=== PATIENT | female | born 1995 | race Caucasian/White ===

== ENCOUNTER 2023-03-17 11:58 | Outpatient (CLI) | payer BC, SELFPAY ==
--- NOTE | 2023-03-17 12:15 | CRLHL7_ITS ---
For Patients: As a result of the Cures Act, medical imaging exams and procedure reports are released immediately into your electronic medical record. You may view this report before your referring provider. If you have questions, please contact your health care provider. INDICATION: First trimester dating. TECHNIQUE: Ultrasound OB pelvis transabdominal and transvaginal. Real-time haro-scale imaging of the pelvis was performed. COMPARISON: None. FINDINGS: Intrauterine gestational sac: Present with mean sac diameter of 1.4 centimeters. Embryo present: No. Embryo cardiac activity: NA. [place] rump Length: NA. Sonographic gestational age: 6 weeks and 2 days. Yolk sac: Present. Perigestational hemorrhage: None. Ovaries and adnexae: The right over measures 3.6 x 2.1 x 2.7 centimeters and the left ovary measures 3.5 x 1.4 x 2.4 centimeters. There is a suspected corpus luteal cyst in the right ovary that measures 2.2 centimeters. IMPRESSION: Intrauterine gestational sac and yolk sac are visualized with mean sac diameter of 1.4 centimeters consistent with 6 weeks and 2 days. There is no visualized embryo or heart rate, which may be secondary to early gestational age. Recommend repeat examination in approximately 2 weeks. Dictated by Yaakov Murillo MD @ 03/17/2023 1:04:00 PM (Electronically Signed)
== END 2023-03-17 11:59 | disposition home or self-care (01) ==
LOC: US 12:02
PROVIDERS: Visit Provider Advanced Practice Midwife
DX: Z34.91 Encounter for supervision of normal pregnancy, unspecified, first trimester (principal); Z3A.01 Less than 8 weeks gestation of pregnancy
CPT/HCPCS: 76817

== ENCOUNTER 2023-03-31 09:27 | Outpatient (CLI) | payer BC, SELFPAY ==
--- NOTE | 2023-03-31 09:45 | CRLHL7_ITS ---
For Patients: As a result of the Century Cures Act, medical imaging exams and procedure reports are released immediately into your electronic medical record. You may view this report before your referring provider. If you have questions, please contact your health care provider. INDICATION: Follow-up viability COMPARISON: 03/17/2023 TECHNIQUE: Real-time haro-scale imaging of the pelvis was performed. FINDINGS: Sonographic imaging demonstrates a single living intrauterine gestation. The embryo demonstrates a regular cardiac rate measuring 142 beats per minute. The embryo`s crown-rump length measurement of 1.3 cm corresponds to a gestational age of 7 weeks 3 days with a sonographic due date of 11/14/2023. There is a normal-appearing yolk sac. There are no gross abnormalities noted within the embryo at this early state of development. The gestational sac has a normal appearance. There is no evidence of a perigestational hemorrhage. The amount of fluid within the sac appears appropriate for gestational age. The cervix is closed. The myometrium appears normal. The ovaries are of normal size. Corpus luteal cyst right ovary. There are no suspicious fluid collections noted in the cul-de-sac. IMPRESSION: Normal first trimester OB ultrasound exam. Gestational age calculated at 7 weeks 3 days with a sonographic due date of 11/14/2023. Dictated by Rainer Cheema MD @ 03/31/2023 10:34:43 AM (Electronically Signed)
== END 2023-03-31 09:28 | disposition home or self-care (01) ==
LOC: US 09:28
PROVIDERS: Visit Provider Advanced Practice Midwife
DX: Z34.91 Encounter for supervision of normal pregnancy, unspecified, first trimester (principal); Z3A.01 Less than 8 weeks gestation of pregnancy
CPT/HCPCS: 76817; 86592; 86703; 86704; 86706; 86762; 86787; 86803; 86850; 86900; 86901; 87086; 87340

== ENCOUNTER 2023-06-25 09:16 | Outpatient (CLI) | payer BC, SELFPAY ==
--- NOTE | 2023-06-25 09:15 | US_ITS ---
Patient: ISABEL COLLINS Facility:?[facility] Patient ID:?[id number] Site Patient ID:?[id number]. Site :?1995 Study:?US-OB Pelvis OB > 14wks-06/25/2023 11:19:47 AM Ordering Physician:?Shantell Jaramillo Final Report: INDICATION: Evaluate anatomy. COMPARISON: 03/31/2023 TECHNIQUE: Real time haro scale imaging of the fetus was performed as well as color Doppler analysis of the umbilical vessels. FINDINGS: Sonographic imaging demonstrates a single living intrauterine gestation. Fetus demonstrates a regular cardiac rate of 144 beats per minute. Fetus has a vertex position. The placenta lies anteriorly without evidence of placenta previa. Placental edge 8.9 cm from the internal cervical os. Amniotic fluid volume appears normal. Single deepest vertical pocket: 4.1 cm. The cervix is closed and measures 4.3 cm in length. The composite ultrasound gestational age is calculated at 20 weeks 1 day with an estimated sonographic due date of 11/11/2023. The estimated weight is 317 grams which lies at the 54th %. The following biometric measurements were obtained: Biparietal diameter: 4.7 cm/20 weeks 2 days 74th% Head circumference: 17.6 cm/20 weeks 0 days 59th% Abdominal circumference: 14.5 cm/19 weeks 6 day 49th% Femur length: 3.2 cm/19 weeks 6 days 45th% The HC/AC ratio measures: 1.21 range (1.07-1.25) On anatomic survey, there is a normal appearance of the cerebral ventricles, cavum septi pellucidi, cisterna magna and cerebellum. The nose, lips, and facial profile appear normal. The cervical, thoracic and lumbar spine are well visualized and appear normal. There is a normal four-chamber heart view and the left and right ventricular outflow tracts appear normal. Incomplete visualization of the 3VTV view. The diaphragm and stomach appear normal. The kidneys and bladder also appear normal. There is a normal three-vessel cord and slightly eccentric cord insertion site. The four extremities appear normal. IMPRESSION: Concordance of clinical and sonographic dating. Incomplete visualization of the 3VTV view. Remainder of the anatomic survey normal. Short-term follow-up recommended. Dictated by Rainer Cheema MD @ 06/25/2023 11:54:00 AM Signed by:?Rainer Cheema MD @06/25/2023 11:54:00 AM (Electronic Signature)
== END 2023-06-25 09:17 | disposition home or self-care (01) ==
LOC: US 09:17
PROVIDERS: Visit Provider Obstetrics & Gynecology
DX: Z34.92 Encounter for supervision of normal pregnancy, unspecified, second trimester (principal); Z3A.20 20 weeks gestation of pregnancy
CPT/HCPCS: 76805

== ENCOUNTER 2023-07-09 12:55 | Outpatient (CLI) | payer BC, SELFPAY ==
--- NOTE | 2023-07-09 13:00 | US_ITS ---
Patient: ISABEL COLLINS Facility:?[facility] [place] Patient ID:?[id number] Site Patient ID:?[id number] Site :?1995 Study:?US-OB Pelvis OB F/U-07/09/2023 2:07:42 PM Ordering Physician:Ana Santana Final Report: INDICATION: Follow-up 3VTV, incompletely imaged on the anatomic survey COMPARISON: 07/09/2023 TECHNIQUE: Real time haro scale imaging of the fetus was performed. FINDINGS: Sonographic imaging demonstrates a single living intrauterine gestation. Fetus demonstrates a regular cardiac rate of 155 beats per minute. Fetus has a vertex position. The placenta lies anterior. Amniotic fluid volume appears normal. Single deepest vertical pocket: 5.6 cm. The cervix is closed and measures 3.7 cm in length. There is a normal four-chamber heart view and the left and right ventricular outflow tracts appear normal. Normal 3VTV. IMPRESSION: Normal cardiac views. Dictated by Rainer Cheema MD @ 07/09/2023 3:00:13 PM Signed by:?Rainer Cheema MD @07/09/2023 3:00:13 PM (Electronic Signature)
== END 2023-07-09 12:56 | disposition home or self-care (01) ==
LOC: US 12:56
PROVIDERS: Visit Provider Obstetrics & Gynecology
DX: O36.8390 Maternal care for abnormalities of the fetal heart rate or rhythm, unspecified trimester, not applicable or unspecified (principal)
CPT/HCPCS: 76816

== ENCOUNTER 2023-08-20 08:30 | Outpatient (CLI) | payer BC, SELFPAY | END 2023-08-20 08:31 | disposition home or self-care (01) | LOC: NFLDREF 08-24 13:24 | PROVIDERS: Visit Provider Obstetrics & Gynecology | DX: Z34.92 Encounter for supervision of normal pregnancy, unspecified, second trimester (principal); Z3A.27 27 weeks gestation of pregnancy | CPT/HCPCS: 86592 ==

== ENCOUNTER 2023-09-06 07:14 | Outpatient (CLI) | payer BC, SELFPAY ==
--- NOTE | 2023-09-06 07:15 | CRLHL7_ITS ---
For Patients: As a result of the Century Cures Act, medical imaging exams and procedure reports are released immediately into your electronic medical record. You may view this report before your referring provider. If you have questions, please contact your health care provider. INDICATION: Excessive growth. TECHNIQUE: Ultrasound OB pelvis transabdominal. Real-time haro-scale imaging of the fetus was performed as well as color Doppler and spectral Doppler analysis of the umbilical artery. COMPARISON: July 09, 2023. FINDINGS: Single living intrauterine gestation. heart rate: 142 beats per minute. Presentation: Breech. Placenta: Anterior without previa. Amniotic fluid deepest pocket: 5.8 cm. The following biometric measurements were obtained: Biparietal diameter: 80th percentile. Head circumference: 63rd percentile. Abdominal circumference: 44th percentile. Femur length: 20th percentile. Ultrasound age: 30 weeks 5 days. YUNG by US: November 10, 2023. EFW: 1530 Grams, 39th %. IMPRESSION.: Viable intrauterine . No abnormalities seen. Fetus is measuring at the 39th percentile by estimated age. Dictated by Dru Valencia MD @ 09/06/2023 8:26:02 AM (Electronically Signed)
== END 2023-09-06 07:15 | disposition home or self-care (01) ==
LOC: US 07:15
PROVIDERS: Visit Provider Obstetrics & Gynecology
DX: O36.63X0 Maternal care for excessive fetal growth, third trimester, not applicable or unspecified (principal); Z3A.30 30 weeks gestation of pregnancy
CPT/HCPCS: 76816

== ENCOUNTER 2023-10-01 15:13 | Outpatient (CLI) | payer BC, SELFPAY | END 2023-10-01 15:14 | disposition home or self-care (01) | LOC: NFLDREF 10-04 11:30 | PROVIDERS: Visit Provider Obstetrics & Gynecology | DX: Z34.93 Encounter for supervision of normal pregnancy, unspecified, third trimester (principal) | CPT/HCPCS: 82728 ==

== ENCOUNTER 2023-10-14 18:26 | Inpatient (IN) | payer BC, SELFPAY ==
[2023-10-14] VITALS (8 sets, daily range): BP systolic 116–117; BP diastolic 50–72; PULSE 61–76; TEMP 36.3–37; BMI 30.7
[2023-10-14 18:02] LABS: Amnisure Rom* POSITIVE
--- NOTE | 2023-10-14 19:21 | P.OBHP_ITS ---
OB - H&P: HPI Labor/Induction History of Present Illness Time Seen by Provider: 19:21 Date Seen: 10/14/23 Chief Complaint: Chelsea is a 28 year old 1 para 0 at 35 4/7 weeks gestation by LMP, who presents with pre term premature rupture of membranes. Rupture membranes occurred at 4:20 p.m. copious amount of clear fluid. AmniSure was positive consistent with Pprom. She has been feeling some cramping since her water broke. Group B strep test was collected in triage. Group B strep status is unknown so will start Ancef for GBS prophylaxis as she is allergic to penicillin. Planning on starting Pitocin at 10:00 p.m. if she does not progress into labor spontaneously. All of her questions were answered. Chief complaint: maternity : 1 Para: 0 Narrative: Chelsea Hammond is a 28 year old female Specific Issues/Plans Fiance: Cassius Baby: Boy Merrick #Mild thrombocytopenia at 28 weeks: 133K. Recheck at 34 weeks 10/01/2023: 144K = normal. Check CBC on admission to the Center. #Asthma w/ recent inhaler use. #Rubella non-immune. Need vaccine PP. # Non-immune to hepatitis B. Works in a [employer]. Given info on hep B vaccine 04/30. # Nipple pain and blanching, suspect Raynaud's nipples * Patient removed piercings, and that has helped * May need to consider nifedipine Needs PP pap Covid: declines Flu: declines Tdap: 09/06/23 Ultrasounds: - FAS with repeat to complete cardiac views: normal, EFW - Growth @ 30wks - measuring large for dates. 09/05: Breech. EFW 39%tile, AC 44th%tile, 1530g. SDP: 5.8 cm Meds Home Medications and Allergies Home Medications ?Medication ?Instructions ?Recorded ?Confirmed ?Type docosahexaenoic acid 200 mg mg PO DAILY 03/17/23 10/01/23 History capsule ( DHA) acetaminophen 325 mg capsule 650 mg PO Q6H PRN 05/28/23 10/14/23 History (Tylenol) Allergies Allergy/AdvReac Type Severity Reaction Status Date / Time amoxicillin [From Augmentin] Allergy Intermediate Rash and Verified 08/08/24 17:58 diarrhea bee venom protein (honey bee) Allergy Intermediate swelling Verified 10/14/23 17:58 clavulanic acid Allergy Intermediate Rash and Verified 10/14/23 17:58 [From Augmentin] diarrhea OB - H&P: Exam Physical Exam: Vital signs: Temp Pulse BP 98.6 F 76 116/72 10/14/23 18:44 10/14/23 17:45 10/14/23 17:45 Narrative: GENERAL APPEARANCE: Pleasant, [race], well-groomed woman in no acute distress. VITAL SIGNS: as noted in nursing notes HEAD: Normocephalic, atraumatic. THYROID: no masses, nodularity, tenderness or enlargement. LUNGS: Clear to auscultation bilaterally without wheezes, rales or rhonchi. HEART: Regular rate and rhythm with normal S1 and S2. No gallop, rub or murmur. ABDOMEN: Gravid. Soft, nontender, nondistended, with normal bowels sounds throughout. EFM: Baseline 110's. Accelerations: Present. Decelerations: Absent. Reactive. Category 1 Bedside ultrasound: vertex presentation. TOCO: 3-10min. Patient is feeling some contractions. SVE: 1 cm/70%/-1/mid/soft. Mustafa score: 8 EXTREMITIES: No cyanosis, clubbing, or edema. No varicosities. NEUROLOGIC: Normal gait and balance. Normal deep tendon reflexes at bilateral patella 2+/2, equal without clonus. PSYCHIATRIC: alert and oriented x3. Normal speech pattern, eye contact and affect. SKIN: Warm, dry, and well perfused. Good turgor. No lesions, nodules or rashes. OB - Problem Based A/P Additional Plan (1) premature rupture of membranes (PPROM) delivered, current hospitalization: Status: Acute Plan 1. CBC due to history of mild thrombocytopenia 2. Type and screen 3. GBS collected 4. Ancef 2 g q.8 hours for GBS unknown status 5. Will make Pediatrics aware of patient's admission due to pre term status. 6. Start Pitocin at 10:00 p.m. if the patient does not spontaneously go into labor. 7. Unsure if she wants to have an epidural for labor analgesia. Planning nitrous gas.
[2023-10-14] MEDS: CEFAZOLIN 2 GM in 0.9 % SODIUM CHLORIDE Mini-bag 100 ML IVPB (21:00)
[2023-10-14] MEDS: OXYTOCIN 30 unit/500 ML in NS 30 UNIT/500 ML BAG IVPB (22:09)
[2023-10-14] MEDS: LACTATED RINGERS 1000 ML 1,000 ML 124 ML IV (22:09)
[2023-10-15] VITALS (95 sets, daily range): BP systolic 85–194; BP diastolic 50–85; PULSE 53–107; RESP 18; TEMP 36.4–37.1; O2SAT 89–100
[2023-10-15] MEDS: hydrOXYzine pamoate 25 MG CAPSULE 100 MG PO ×2 (04:11→08:08)
[2023-10-15] MEDS: MORPHINE 10 MG/ML inj IM ×2 (04:14→08:08)
[2023-10-15] MEDS: CEFAZOLIN 1 GM in 0.9 % SODIUM CHLORIDE Mini-bag 100 ML IVPB ×2 (05:29→12:58)
--- NOTE | 2023-10-15 08:46 | PM.OBPNL ---
Subjective Time Seen by Provider: 07:15 Date Seen: 10/15/23 Narrative: Chelsea is a 28-year-old woman at 35 weeks, 5 days gestation with PPROM occurring at 4:20 p.m. on 10/14/2023. OB problem list is notable for mild thrombocytopenia at 28 weeks. Repeat platelets thereafter were 144. She has asthma as well. GBS is pending, and she has been started on Ancef for GBS unknown status and PPROM. She was started on Pitocin for induction of labor last night. Her cervix at that time was 1 cm and 70% effaced,-1 station. Pitocin was recently stopped at a little after 6:00 a.m. for recurrent variable decelerations. Since that time, these have resolved. The were intermittent for short period of time, and she has had none in greater than 30 minutes at the time of our visit. She is feeling stronger contractions than previously. Objective Exam: Physical exam: Vitals as noted above. General: No acute distress, on birthing ball Psych: Alert and oriented x 3, full affect Abdomen: Soft, nontender, gravid, cephalic lie Cervical exam: 3 cm, 100% effaced, +1 station, anterior and soft Vital Signs: Last Vital Signs Temp 97.6 F 10/15/23 07:31 Pulse 64 10/15/23 07:30 BP 112/62 10/15/23 07:30 Pulse Ox 96 10/15/23 07:31 Comments: tracing: Baseline 115, accelerations present, no decelerations in the last 30 minutes, moderate variability Assessment Assessment: early labor Amniotic Membrane Status: SROM Status: Category l Heart Rate Baseline: 115 Tracing Comments: Category 1 for last 1/2 hour Labor Progress: Now with favorable cervix GBS still unknown Maternal Status: Reassuring, though platelets have not been checked Plan Plan: Begin Pitocin for induction of labor once again. Continuous monitoring. Awaiting GBS result. Until that time, continue Ancef every 8 hours. CBC now.
[2023-10-15 09:11] LABS: Basophils Percent Auto 0.3 % (0.0-3.0); Eosinophils Percent Auto 0.1 % (0.0-7.0); Hematocrit 36.3 % (33.0-51.0); Hemoglobin* 12.3 gm/dL (12.0-16.0); Immature Granulocytes Pct Auto 0.7 %; Lymphocytes Percent Auto 6.7 % (20-44); Mean Corpuscular HGB Conc 34 gm/dL (32-36); Mean Corpuscular Hemoglobin 32 pg (26-34); Mean Corpuscular Volume 93 fL (80-100); Monocytes Percent Auto 4.6 % (0.0-11.0); Neutrophils Percent Auto 87.6 % (42.0-72.0); Platelet Count* 109 K/uL (140-440); White Blood Count* 16.19 K/uL (4.50-11.00)
[2023-10-15 09:12] LABS: Slide Review Reflex No
[2023-10-15] MEDS: ROPIVACAINE 0.2% 100 ml 100 ML 12 MG EPIDURAL (10:24)
[2023-10-15] MEDS: LIDOCAINE 2% (PF) 5 ML VIAL EPIDURAL (10:24)
--- NOTE | 2023-10-15 10:29 | P.ANBPRC_ITS ---
[facility] Medical History Smoking ?F17.200 - Nicotine dependence, unspecified, uncomplicated (ICD-10) Vaping nicotine dependence, tobacco product ?F17.290 - Nicotine dependence, other tobacco product, uncomplicated (ICD-10) Irregular menses ?N92.6 - Irregular menstruation, unspecified (ICD-10) Insomnia ?G47.00 - Insomnia, unspecified (ICD-10) Surgical History [place] teeth extracted ?K08.409 - Partial loss of teeth, unspecified cause, unspecified class (ICD- 10) Family History Father Diabetes Alcohol dependence Arthritis Maternal Grandfather Heart disease Diabetes Mother Alcohol dependence Fibromyalgia Paternal Grandfather Alcohol dependence Diabetes Social History Narrative: SOCIAL? ? Education: bachelors? ? Work: Therapist? ? Partner: Cassius, engaged. chief technology officer? ? Lives with: Cassius, Roommate? ? Pets: dogs? ? Abuse: Denies past, Unable to assess current, partner present? ? Special Diet: Denies? ? Ok with a blood transfusion: yes? ? Culture or mormonism beliefs: denies? RISK FACTORS? ? Exercise Times/wk: 4 - 5 x a week. Running, workouts. ? ? Depression/Anxiety: denies? ? Previous Treatments NA Therapy NA? Seat Belt Use: Routinely ? Smoking: Denies present? ?Smoked 10 years, 1/2 per day, quit Mar 08. Alcohol/day: Before she knew. ? ? Caffeine: minimal a few cups a week? ? Drug Use: Denies past/present? ? What is your current living situation?: I presently have a place to live Problems where you live: unable to answer In the past 12 months, utilities in danger of being shut off: no In past 12 months, lack of transportation kept you from medical appts, meetings, work, or getting things needed for daily living: no In the past 12 mos, have been you worried that your food would run out before you had money to buy more?: never true In the past 12 mos, the food you bought just didn't last and you didn't have money to buy more?: never true Smoking Status: Former smoker How often does anyone, including family, friends and others, physically hurt you : never How often does anyone, including family, friends and others, insult or talk down to you: never How often does anyone, including family, friends and others, threaten you with harm: never How often does anyone, including family, friends and others, scream or curse at you: never Little interest or pleasure in doing things: not at all Feeling down, depressed, or hopeless: not at all Meds Home Medications and Allergies Home Medications ?Medication ?Instructions ?Recorded ?Confirmed ?Type docosahexaenoic acid 200 mg mg PO DAILY 03/17/23 10/01/23 History capsule ( DHA) acetaminophen 325 mg capsule 650 mg PO Q6H PRN 05/28/23 10/14/23 History (Tylenol) Allergies Allergy/AdvReac Type Severity Reaction Status Date / Time amoxicillin [From Augmentin] Allergy Intermediate Rash and Verified 10/14/23 17:58 diarrhea bee venom protein (honey bee) Allergy Intermediate swelling Verified 10/14/23 17:58 clavulanic acid Allergy Intermediate Rash and Verified 10/14/23 17:58 [From Augmentin] diarrhea Results Labs Labs: Laboratory Results - last 24 hr 10/14/23 10/15/23 17:36 08:03 WBC 16.19 H RBC 3.90 L Hgb 12.3 Hct 36.3 MCV 93 MCH 32 MCHC 34 RDW Coeff of Alexandra 13.0 Plt Count 109 L Neut % (Auto) 87.6 H Lymph % (Auto) 6.7 L [place]ley % (Auto) 4.6 Eos % (Auto) 0.1 Baso % (Auto) 0.3 Neut # (Auto) 14.20 H Lymph # (Auto) 1.10 [place] # (Auto) 0.70 Eos # (Auto) 0.00 Baso # (Auto) 0.00 Abs Immat Gran (auto) 0.10 Imm/Tot Granulo (auto) 0.7 Membrane Rupture POSITIVE Vital Signs Vital Signs: Last Vital Signs Temp 97.6 F 10/15/23 09:36 Pulse 65 10/15/23 10:28 BP 119/67 08/09/24 10:28 Pulse Ox 100 10/15/23 10:24 Weight: 81.193 kg Height: 162.56 cm Anesthesia Procedures Epidural Insertion Patient Location: OB Start Time: 10:00 Stop Time: 10:45 Start Date: 10/15/23 Stop Date: 10/15/23 Reason for Block: primary anesthetic Patient Position: sitting Performed By: Mal Han Preanesthetic Checklist: IV checked, risks and benefits discussed, surgical consent, monitors and equipment checked, pre-op evaluation, timeout performed and anesthesia consent Prep: chlorhexidine gluconate Monitoring: blood pressure monitoring, cardiac cath technologist, continuous pulse oximetry and heart rate Approach: midline Vertebral Space: lumbar (1-5) Needle Type: Tuohy needle Injection Technique: continuous catheter (catheter) Needle gauge: 17 Needle Length (cm): 10 cm Needle Insertion Depth (cm): 5 Catheter Gauge: 19 Catheter Type: multi-orifice Catheter at skin depth (cm): 10 Test Dose Result: negative and lidocaine 1.5% with epinephrine 1 to 200,000
[2023-10-15] MEDS: LACTATED RINGERS 1000 ML 1,000 ML 125 ML IV (10:30)
--- NOTE | 2023-10-15 12:46 | PM.OBPNVD1 ---
OB - PN:Subj Subjective Date Seen: 10/15/23 Interval history: Chelsea is a 28 yo woman at 35 5/7 weeks' gestation with PPROM yesterday at 4:20 PM. She has been on ocytocin for induction of labor since 10 PM yesterday, with pitocin stopped for a total of around 3 hours for recurrent variable decelerations. Since our last visit, she has had epidural. OB - PN: Obj Exam Physical Exam: Vital signs: Temp Pulse BP Pulse Ox 98.7 F 64 103/62 100 10/15/23 12:00 10/15/23 12:41 10/15/23 12:41 10/15/23 12:45 Narrative: General: Pleasant, no acute distress Cervix: [] Strip reviewed over the last hour. Baseline is 125, accelerations present. There are recurrent brief decelerations between 1150 through 1210. There have been three longer variable decelerations since that time, the last at 1246 with josias in 80s, lasting approximately 80 seconds. Moderate variability. OB - PN: Obj Data Labs Labs: Laboratory Results - last 24 hr 10/14/23 10/15/23 17:36 08:03 WBC 16.19 H RBC 3.90 L Hgb 12.3 Hct 36.3 MCV 93 MCH 32 MCHC 34 RDW Coeff of Alexandra 13.0 Plt Count 109 L Neut % (Auto) 87.6 H Lymph % (Auto) 6.7 L [place] % (Auto) 4.6 Eos % (Auto) 0.1 Baso % (Auto) 0.3 Neut # (Auto) 14.20 H Lymph # (Auto) 1.10 [place] # (Auto) 0.70 Eos # (Auto) 0.00 Baso # (Auto) 0.00 Abs Immat Gran (auto) 0.10 Imm/Tot Granulo (auto) 0.7 Membrane Rupture POSITIVE OB - PN: A/P Delivery Assessment and Plan (1) premature rupture of membranes (PPROM) delivered, current hospitalization: Status: Acute
--- NOTE | 2023-10-15 12:57 | PM.OBPNL ---
Subjective Date Seen: 10/15/23 Narrative: Chelsea is a 28-year-old woman at 35 weeks, 5 days gestation with PPROM occurring at 4:20 p.m. on 10/14/2023. OB problem list is notable for mild thrombocytopenia at 28 weeks. Repeat platelets this morning were 109. She has asthma as well. GBS is pending, and she has been started on Ancef for GBS unknown status and PPROM. She was started on Pitocin for induction of labor at 10 PM last night. Her cervix at that time was 1 cm and 70% effaced,-1 station. Since that time, Pitocin has been stopped a total of around 3 hours for recurrent variable decelerations. Since our last exam, she has had an epidural. Objective Exam: Physical exam: Vitals as noted above. General: No acute distress, on birthing ball Psych: Alert and oriented x 3, full affect Cervical exam: [] Vital Signs: Last Vital Signs Temp 98.5 F 10/15/23 12:50 Pulse 58 L 10/15/23 12:56 BP 89/52 L 10/15/23 12:56 Pulse Ox 98 10/15/23 12:55 Comments: Strip reviewed over the last hour. Baseline is 125, accelerations present. There are recurrent brief decelerations between 1150 through 1210. There have been three longer variable decelerations since that time, the last at 1246 with josias in 80s, lasting approximately 80 seconds. Moderate variability. Assessment Assessment: early labor Amniotic Membrane Status: SROM Status: Category l Heart Rate Baseline: 115 Tracing Comments: Category 2 tracing. Stop pitocin augmentation. Follow tracing for resolution of variable decelerations. Labor Progress: Now with favorable cervix GBS still unknown Continue Ancef. Maternal Status: Reassuring Plan Plan: as above
[2023-10-15] MEDS: PHENYLEPHRINE 100 MCG/ML SYRINGE IVP ×2 (13:01→13:09)
[2023-10-15] MEDS: OXYTOCIN 30 unit/500 ML in NS 30 UNIT/500 ML BAG 300 UNIT IVPB (13:36)
[2023-10-15] MEDS: LIDOCAINE 1 % PF 30 ML INJECTION (13:45)
[2023-10-15 13:57] LABS: Strep B DNA Probe Negative (Negative)
[2023-10-15 14:00] LABS: Strep B Susceptibility Needed? No
--- NOTE | 2023-10-15 14:02 | W.PM.VAGDEL1 ---
Procedure Delivery date: 10/15/23 Procedure Done: [employer] Procedure Details: The patient is a 28 year-old G 1 P 0 admitted on 10/14/2023 at 35 Weeks, 4 Days gestation for PPROM.? Cervical exam on admission was 1 cm/70 % effaced/-1 station with membranes ruptured in vertex presentation.? She was not having regular contractions.? heart rate demonstrated baseline 110 bpm with moderate variability, positive accelerations, no decelerations; a category 1 tracing.? SROM had occurred at 4:20 p.m. on that day with clear fluid. ? Labor Analgesia:? IV narcotics, followed by epidural ? Pitocin:? Yes ? Labor onset:? Uncertain; she went from 4 cm to completely dilated in less than 3 hours ? Complete:? 1:01 p.m. on 10/15/2023 ? Pushing:? 1:10 p.m. ? heart tones during second stage were notable for recurrent variable decelerations around the time of contractions. ? At 1:36 p.m. a viable male infant delivered in vertex MAXWELL presentation over intact perineum via spontaneous vaginal delivery.? Infant was placed on maternal abdomen.? Cord was clamped and cut after a 30-60 second delay.? Nose and mouth were bulb suctioned.? Infant weight pending.? 8 at 1 minute and 9 at 5 minutes.? Shoulder dystocia: No.? Nuchal cord: No. ? Placenta delivered spontaneously and complete at 1:52 p.m. with a 3 vessel cord. A true knot in the cord was noted. ? Mother and infant were stable after delivery. ? Lacerations:? Bilateral periurethral, repaired with 3-0 Vicryl after infiltration with approximately 8 mL of 1% lidocaine. ? Blood loss: 125 mL. Blood loss measurement type: QBL ? Sponge and needles counts are correct.
[2023-10-15] MEDS: IBUPROFEN 600 MG TABLET PO (19:35)
[2023-10-15] MEDS: ACETAMINOPHEN 500 MG TABLET 1000 MG PO (21:57)
[2023-10-16 00:25] VITALS: BP 103/63; PULSE 65; RESP 16; TEMP 36.7; O2SAT 96
[2023-10-16] MEDS: IBUPROFEN 600 MG TABLET PO ×4 (02:52→21:03)
[2023-10-16 05:00] VITALS: BP 95/56; PULSE 50; RESP 16; TEMP 36.8; O2SAT 98
[2023-10-16] MEDS: ACETAMINOPHEN 500 MG TABLET 1000 MG PO ×3 (05:16→18:53)
[2023-10-16 06:32] LABS: Hemoglobin* 11.1 gm/dL (12.0-16.0)
[2023-10-16 07:55] VITALS: BP 97/62; PULSE 61; RESP 17; TEMP 36.7; O2SAT 98
[2023-10-16] MEDS: DOCUSATE SODIUM 100 MG CAPSULE PO (08:53)
--- NOTE | 2023-10-16 09:54 | PM.OBPNVD1 ---
OB - PN:Subj Subjective Date Seen: 10/16/23 Interval history: Okay Patient comments OB post-: no complaints and tolerating diet infant status: feeding status: exclusively OB - PN: Obj Exam Physical Exam: Vital signs: Temp Pulse Resp BP Pulse Ox O2 Del Method 98.1 F 61 17 97/62 98 Room Air 10/16/23 07:55 10/16/23 07:55 10/16/23 07:55 10/16/23 07:55 10/16/23 07:55 10/16/23 07:55 Narrative: VITAL SIGNS: As noted above. GENERAL APPEARANCE: Alert, cooperative female in no acute distress. MOOD & AFFECT: Normal. ABDOMEN: Well contracted uterus, nontender. Soft and nondistended. : Normal lochia. EXTREMITIES: Nonedematous. Well perfused. Nontender. OB - PN: Obj Data Labs Labs: Laboratory Results - last 24 hr 10/14/23 10/16/23 18:34 05:50 Hgb 11.1 L Group B Strep DNA Negative OB - PN: A/P Delivery Assessment and Plan (1) premature rupture of membranes (PPROM) delivered, current hospitalization: Status: Acute Plan day: 1 Plan: routine care
--- NOTE | 2023-10-16 10:17 | PM.ANPOST ---
Post Anesthesia Note Post Anesthesia Note Patient seen: Inpatient Respiratory Status: adequate Cardiovascular Status: adequate Mental Status: baseline Pain: adequate Temp: baseline Anesthetic awareness: N/A Complications: none Follow care: none
[2023-10-16 11:45] VITALS: BP 101/64; PULSE 55; RESP 17; TEMP 36.6; O2SAT 99
[2023-10-16 19:57] LABS: Rapid Plasma Reagin (RPR) Non Reactive (Non Reactive)
[2023-10-16 22:50] VITALS: BP 111/72; PULSE 65; RESP 16; TEMP 37.2
[2023-10-17] MEDS: ACETAMINOPHEN 500 MG TABLET 1000 MG PO ×3 (00:45→15:04)
[2023-10-17] MEDS: IBUPROFEN 600 MG TABLET PO ×2 (06:02→11:51)
[2023-10-17 09:16] VITALS: BP 103/68; PULSE 57; RESP 18; TEMP 36.7; O2SAT 99
[2023-10-17] MEDS: DOCUSATE SODIUM 100 MG CAPSULE PO (09:22)
--- NOTE | 2023-10-17 10:21 | PM.OBDSVD1 ---
DS: Providers Provider Date Seen: 10/17/23 Date of admission: 10/14/23 18:26 Primary care physician: Not a Local Provider Admitting Clinician: Yancy Carballo MD Consults: 10/15/23 20:31 Consult to Knitting Machine Operator [CONS] Routine Comment: primip that would benefit from resource review Reason for Consult:: Discharge Planning Needs Attending Physician on discharge: Royal Whitten MD Date of Discharge: 10/17/23 DS: Diagnosis Discharge Diagnosis (1) premature rupture of membranes (PPROM) delivered, current hospitalization: Status: Acute (2) Psoriasis: Status: Acute (3) Exercise-induced asthma: Status: Acute Problem details: Recent inhaler use Exam Narrative: Exam Narrative: VITAL SIGNS: As noted above. GENERAL APPEARANCE: Alert, cooperative female in no acute distress. MOOD & AFFECT: Normal. ABDOMEN: Soft, non-distended and nontender. Well contracted uterus at umbilicus and non tender. : Normal pp lochia. EXTREMITIES: Nonedematous. Well perfused. Nontender. Const: Vital Signs, click to edit/add: Vital Signs - 24 hr 10/16/23 11:45 10/16/23 22:50 10/17/23 09:16 Temperature 97.9 F 98.9 F 98.1 F Pulse Rate [Pulse Oximeter] 55 L 65 57 L Respiratory Rate 17 16 18 Blood Pressure [Le ft Arm] 101/64 111/72 103/68 Pulse Oximetry 99 99 Oxygen Delivery Me thod Room Air Room Air Room Air OB - DS: Summary Hospital Course Hospital Course: The patient is a 28 year old G 1 P 0101 at 35 5/7 weeks gestation that was admitted to the Center on 10/14/23 after PPROM for delivery. She had an uncomplicated vaginal delivery. She delivered a viable male . She is breast feeding. the patient has done well. Peripartum Data Infant delivery method: Vaginal Laceration description: Periurethral - 1st Degree complications: none Gender: Male Infant Discharge Plan: May need to stay one more night for car seat challenge test repetition Status at Discharge Functional status at discharge: independent ambulation Overall status at discharge: patient is progressing back to baseline Time Spent with Patient Time attestation: Total time spent providing and/or coordinating discharge services: Time spent: Less than 30 minutes Discharge Plan Discharge Disposition: Home, Self-Care Date of Admission: 10/14/23 18:26 Attending Provider on Discharge: Leah Whitten Primary Care Provider: Provider,Not a Local Condition: Stable Anticipated Discharge Date/Time: 10/17/23 10:24 Discharge Medications: New docusate sodium 100 mg Capsule 100 mg PO DAILY Qty: 30 0RF ibuprofen 600 mg Tablet 600 mg PO Q6H PRNQty: 30 0RF Continued DHA 200 mg capsule PO DAILY acetaminophen [Tylenol] 325 mg capsule 650 mg PO Q6H PRN Discharge Orders: Discharge Order (Routine); Ordered 10/17/23 Ordered By: Leah Whitten Patient Education: OB Vaginal/Breast Feeding Additional Instructions: Follow up in clinic 2 weeks for mood check. Follow up in clinic in 6 weeks for regular visit. Activity Level: Activity as Tolerated Activity Detail: Nothing vaginally for 6 weeks. Discharge Diet: Regular Follow Up Appointments: Provider,Not a Local [Primary Care Provider] - Forms: [facility] Instructions
[2023-10-17 15:10] VITALS: BP 104/70; PULSE 67; RESP 17; TEMP 36.4; O2SAT 100
== END 2023-10-17 15:30 | disposition home or self-care (01) | DRG 560 ==
LOC: OB OUT 18:27 → OB 18:27
PROVIDERS: Obstetrics & Gynecology; Admitting Provider Obstetrics & Gynecology; Visit Provider Obstetrics & Gynecology
DX: O42.013 Preterm premature rupture of membranes, onset of labor within 24 hours of rupture, third trimester (principal); O71.82 Other specified trauma to perineum and vulva; O99.12 Other diseases of the blood and blood-forming organs and certain disorders involving the immune mechanism complicating childbirth; D69.6 Thrombocytopenia, unspecified; O69.2XX0 Labor and delivery complicated by other cord entanglement, with compression, not applicable or unspecified; L40.9 Psoriasis, unspecified; J45.990 Exercise induced bronchospasm; Z3A.35 35 weeks gestation of pregnancy; Z37.0 Single live birth
CPT/HCPCS: 01967; 36415; 76815; 84112; 85018; 85025; 86592; 87081; 87653; 88307; A9270; J0690; J2001; J2270; J2371; J2795; J7120